=== PATIENT | female | born 1950 | race Caucasian/White ===

== ENCOUNTER 2020-09-03 07:33 | Inpatient (IN) ==
[~2020-09-03 07:33] MED LIST: Buffered Lidocaine 1% SYRIN 1 ml INTRADERM ONE; Lactated Ringers 1000 ml BAG 1,000 ML IV SCH
[2020-09-03] MEDS ORDERED: ceFAZolin 2 GM PREMIX 2 GM/50 ML BAG ONE (07:58)
[2020-09-03] MEDS ORDERED: Midazolam 2 mg/2 ml VIAL 1 mg/ml 2 ml VIAL (2 mg) ONE (08:14)
[2020-09-03] MEDS ORDERED: Propofol 10 MG/ML 20 ML BTL ONE (08:15)
[2020-09-03] MEDS ORDERED: Lidocaine 2% PF 5 ML VIAL ONE (08:15)
[2020-09-03] MEDS ORDERED: Dexamethasone IV 4 MG/ML VIAL 1 ml VIAL ONE (08:20)
[2020-09-03] MEDS ORDERED: Ondansetron 4 mg VIAL 2 MG/ML 2 ml VIAL ONE (08:20)
[2020-09-03] MEDS ORDERED: Glycopyrrolate IV 0.2 MG/ML 1 ML VIAL ONE (08:20)
[2020-09-03] MEDS ORDERED: Phenylephrine IV 10 MG/ML 1 ml VIAL ONE (08:20)
[2020-09-03] MEDS ORDERED: fentaNYL 100 mcg/2 ml 50 MCG/ML VIAL ONE ×2 (09:21→12:30)
[2020-09-03] MEDS ORDERED: EPHEDrine (Pressors) 50 MG/ML VIAL ONE (10:54)
[2020-09-03] MEDS ORDERED: diPHENhydraMINE 25 mg TAB PO PRN (11:13)
[2020-09-03] MEDS ORDERED: Ondansetron ODT 4 mg TAB 4 MG TAB PO PRN (11:13)
[2020-09-03] MEDS ORDERED: diPHENhydraMINE IV 50 MG/ML 1 ml VIAL (BENADRYL) IV PRN ×2 (11:13→12:18)
[2020-09-03] MEDS ORDERED: Magnesium Hydroxide LIQ 30 ML UDC PO PRN (11:13)
[2020-09-03] MEDS ORDERED: oxyCODONE/Acetamin 5/325 mg TAB PO PRN (11:13)
[2020-09-03] MEDS ORDERED: Ondansetron 4 mg VIAL 2 MG/ML 2 ml VIAL IV PRN (11:13)
[2020-09-03] MEDS ORDERED: Morphine 2 MG/ML SYRINGE IV PRN (11:13)
[2020-09-03] MEDS ORDERED: Lactulose 30 ml UDC PO PRN (11:13)
[2020-09-03] MEDS ORDERED: Naloxone 0.4 mg VIAL 0.4 mg/ml 1 ml VIAL IV PRN (12:18)
[2020-09-03] MEDS: fentaNYL 100 mcg/2 ml 50 MCG/ML VIAL IV PRN ×2 (12:31→12:49)
[2020-09-03] MEDS: Lactated Ringers 1000 ml BAG 1,000 ML IV SCH (15:17)
[2020-09-03] MEDS ORDERED: HYDROmorphone 1 MG/1 ML SYRINGE IV SLOW PU PRN (17:45)
[2020-09-03] MEDS: ceFAZolin 1 GM ADVAN 1 GM in NS 0.9% 50 ML 50 ML IVPB SCH (17:50)
[2020-09-03] MEDS: Magnesium Hydroxide LIQ 30 ML UDC PO SCH (21:24)
[2020-09-04] MEDS: ceFAZolin 1 GM ADVAN 1 GM in NS 0.9% 50 ML 50 ML IVPB SCH ×2 (01:47→08:20)
[2020-09-04] MEDS: Lactated Ringers 1000 ml BAG 1,000 ML IV SCH (01:47)
[2020-09-04 05:03] LABS: Hematocrit 29 % (35-47); Hemoglobin 10.1 g/dL (12.0-16.0); Mean Platelet Volume 7.2 fL (7.4-10.4); Platelet Count 232 10^3/uL (150-450)
[2020-09-04 05:27] LABS: Calcium 8.4 mg/dL (8.6-10.3); EGFR African American 107.4 (>60); EGFR Non-African American 88.8 (>60); Potassium 3.7 mmol/L (3.5-5.0)
[2020-09-04 07:33] VITALS: BP 103/50
[2020-09-04] MEDS: Magnesium Hydroxide LIQ 30 ML UDC PO SCH (08:20)
[2020-09-04] MEDS ORDERED: Vitamin THERAPEUTIC TAB PO SCH (09:00)
== END 2020-09-04 12:08 | disposition home health service (06) | DRG 470 ==
LOC: AA 07:33 → SSU 15:07
PROVIDERS: ADMIT Orthopaedic Surgery Adult Reconstructive Orthopaedic Surgery; ATTEND Orthopaedic Surgery Adult Reconstructive Orthopaedic Surgery